=== PATIENT | male | born 2000 | race Caucasian/White ===

== ENCOUNTER 2021-09-05 17:49 | Emergency (ER) | payer OTHER ==
[2021-09-05 18:37] LABS: BASOPHIL 0.4 % (0-2); EOSINOPHIL 0.1 % (0-5); HCT 41.7 % (42.0-52.0); HGB 14.4 g/dl (13.2-18.0); LYMPHOCYTE 9.1 % (15-48); MCH 29.6 pg (25.0-31.0); MCHC 34.5 g/dL (32.0-36.0); MCV 85.6 fL (78.0-100.0); MPV 9.7 fL (6.0-9.5); NEUTROPHIL 77.1 % (41-80); NRBC 0; PLT 221 K/uL (150-400); RBC 4.87 M/uL (4.70-6.00); RDW 12.5 % (11.5-14.0)
[2021-09-05 18:38] LABS: BILIRUBIN 1+ mg/dL (NEGATIVE); BLOOD 1+ Ery/uL (NEGATIVE); CLARITY CLEAR (CLEAR); COLOR YELLOW (YELLOW); GLUCOSE (U) NORMAL (NORMAL); LEUKOCYTES NEGATIVE Leu/uL (NEGATIVE); NITRITE NEGATIVE (NEGATIVE); PROTEIN 1+ mg/dL (NEGATIVE); SPECIFIC GRAVITY 1.015 (1.001-1.030)
[2021-09-05 18:44] LABS: WBC 15.9 K/uL (4.0-10.5)
[2021-09-05 18:49] LABS: BUN/CREAT RATIO (CALC) 11.5 RATIO; CREATININE 0.78 mg/dL (0.67-1.17); POTASSIUM 2.9 mmol/L (3.5-5.1)
[2021-09-05 18:51] LABS: BACTERIA 1+
[2021-09-05 18:52] LABS: MUCOUS TRACE
[2021-09-05 20:21] LABS: LACTIC ACID 0.9 mmol/L (0.4-1.9)
[2021-09-05] MEDS ORDERED: POTASSIUM20 MEQ/11 PO (21:33)
== END 2021-09-05 22:15 | disposition home or self-care (01) ==
LOC: FER 17:49
PROVIDERS: Nurse Practitioner Family
DX: J02.0 Streptococcal pharyngitis (principal); B95.5 Unspecified streptococcus as the cause of diseases classified elsewhere; E86.0 Dehydration; E87.6 Hypokalemia; F17.290 Nicotine dependence, other tobacco product, uncomplicated; Z88.0 Allergy status to penicillin
CPT/HCPCS: 36415; 80048; 81001; 83605; 85025; J2405; J7030